=== PATIENT | female | born 1970 | race Caucasian/White ===

== ENCOUNTER 2020-02-26 11:43 | Outpatient (CLI) | payer SELFPAY | END 2020-02-26 23:59 | disposition home or self-care (01) | LOC: RAD 11:43 | PROVIDERS: ATTEND Urology | DX: Z02.9 Encounter for administrative examinations, unspecified (principal) ==

== ENCOUNTER → 2020-05-13 | Outpatient (CLI) | payer MEDICAID ==
[~2020-05-13] MED LIST: AMLO10TA8 PO; METO25TA35 PO
[2020-05-13 13:50] LABS: BASOPHILS # (AUTO) 0.03 x10^3/uL (0-0.1); BASOPHILS % (AUTO) 1 % (0-1); EOSINOPHILS # (AUTO) 0.08 x10^3/uL (0-0.4); EOSINOPHILS % (AUTO) 1 % (1-7); LYMPHOCYTES # (AUTO) 1.15 x10^3/uL (1-3.4); LYMPHOCYTES % (AUTO) 16 % (22-44); MD NO; MEAN CORPUSCULAR HEMOGLOBIN 27.3 pg (27.0-34.8); MEAN CORPUSCULAR HGB CONC 32.3 g/dL (32.4-35.8); MEAN CORPUSCULAR VOLUME 84.7 fL (80-100); MEAN PLATELET VOLUME 7.3 fL (7.4-10.4); MONOCYTES # (AUTO) 0.34 x10^3/uL (0.2-0.8); MONOCYTES % (AUTO) 5 % (2-9); NEUTROPHILS # (AUTO) 5.45 x10^3/uL (1.8-6.8); NEUTROPHILS % (AUTO) 77 % (42-75); PLATELET COUNT 253 x10^3/uL (130-400); RED BLOOD COUNT 5.73 x10^6/uL (3.82-5.3); RED CELL DISTRIBUTION WIDTH 15.5 % (9.6-15.2)
[2020-05-13 13:56] LABS: ALANINE AMINOTRANSFERASE 64 U/L (12-78); ALBUMIN 3.4 g/dL (3.4-5.0); ANION GAP 9 mmol/L (5-15); CALCIUM 8.8 mg/dL (8.5-10.1); CHLORIDE 103 mmol/L (98-107); CREATININE 0.84 mg/dL (0.55-1.02)
[2020-05-13 13:58] LABS: ALKALINE PHOSPHATASE 152 U/L (45-117); BILIRUBIN,TOTAL 0.6 mg/dL (0.2-1.0); TOTAL PROTEIN 8.5 g/dL (6.4-8.2)
[2020-05-13 14:17] LABS: MICROSCOPIC INDICATED
[2020-05-13 14:25] LABS: INTERNATIONAL NORMALIZED RATIO 0.93 (0.93-1.1); PROTHROMBIN TIME 9.9 Seconds (9.6-11.5)
== END | disposition home or self-care (01) ==
LOC: STAR 12:34
PROVIDERS: ATTEND Urology
DX: R94.31 Abnormal electrocardiogram [ECG] [EKG] (principal); N28.89 Other specified disorders of kidney and ureter
CPT/HCPCS: 36415; 80053; 81001; 85025; 85610; 85730; 87086; 93005

== ENCOUNTER 2020-05-23 05:41 | Day surgery (SDC) | payer MEDICAID ==
[~2020-05-23] VITALS: Ht 170.2 cm; Wt 99.0 kg
[2020-05-23] MEDS ORDERED: LACTATED RINGERS 1,000 ML IV SCH (06:11)
[2020-05-23 06:23] VITALS: BP 133/97
[2020-05-23] MEDS ORDERED: CHLORHEXIDINE 15 ML UDC MM ONE (06:30)
[2020-05-23] MEDS ORDERED: LIDOCAINE-MPF 1%, 2ML INFIL ONE (06:30)
[2020-05-23] MEDS ORDERED: BUPIVACAINE/PF-EPI 0.25% 1:200K ONE (06:31)
[2020-05-23] MEDS ORDERED: MANNITOL PMX 20% 0 ML ONE (06:31)
[2020-05-23] MEDS ORDERED: INDIGO CARMINE 0.8%, 5ML ONE (06:31)
[2020-05-23] MEDS ORDERED: FUROSEMIDE 20 MG/2 ML ONE (06:31)
[2020-05-23 06:34] LABS: HCG UR SG 1.018 (1.003-1.030)
[2020-05-23] MEDS ORDERED: LIDOCAINE 1%, 20ML ONE (07:07)
[2020-05-23] MEDS ORDERED: DEXAMETHASONE 4 MG/ML, 1ML ONE (07:10)
[2020-05-23] MEDS ORDERED: MIDAZOLAM 1 MG/ML, 5ML ONE (07:10)
[2020-05-23] MEDS ORDERED: GLYCOPYRROLATE 0.2MG/1ML, 5ML ONE (07:10)
[2020-05-23] MEDS ORDERED: ROCURONIUM 10MG/ML,5ML ONE (07:10)
[2020-05-23] MEDS ORDERED: FENTANYL PF 250 MCG/5ML ONE (07:10)
[2020-05-23] MEDS ORDERED: PROPOFOL 10 MG/ML, 20ML ONE (07:10)
[2020-05-23] MEDS ORDERED: ONDANSETRON 2MG/ML, 2ML ONE (07:14)
[2020-05-23] MEDS ORDERED: SCOPOLAMINE 1MG PATCH TD ONE (07:16)
[2020-05-23] MEDS ORDERED: SCOPOLAMINE 1MG PATCH TD SCH (07:30)
[2020-05-23] MEDS ORDERED: LABETALOL 5MG/ML, 20ML ONE (07:33)
[2020-05-23] MEDS ORDERED: DIAZEPAM 5 MG/ML, 2ML IVPush PRN (08:30)
[2020-05-23] MEDS ORDERED: METOCLOPRAMIDE 5 MG/ML, 2ML IVPush PRN (08:30)
[2020-05-23] MEDS ORDERED: MEPERIDINE/PF 25MG/0.5ML IVPush PRN (08:30)
[2020-05-23] MEDS ORDERED: HALOPERIDOL 5 MG/ML IV PRN (08:30)
[2020-05-23] MEDS ORDERED: HYDROmorphone 1 MG/ML, 1ML INJ IVPush PRN (08:30)
[2020-05-23] MEDS ORDERED: DIPHENHYDRAMINE 50 MG/ML, 1ML IVPush PRN (08:30)
[2020-05-23] MEDS ORDERED: HYDROcodone/APAP 7.5-325MG/15ML UDC PO PRN (08:30)
[2020-05-23] MEDS ORDERED: MIDAZOLAM 1 MG/ML, 2ML IV PRN (08:30)
[2020-05-23] MEDS ORDERED: ACETAMINOPHEN 325 MG TABLET PO PRN (08:30)
[2020-05-23] MEDS ORDERED: EPHEDRINE 50 MG/ML, 1ML IVPush PRN (08:30)
[2020-05-23] MEDS ORDERED: OXYcodone 5 MG/5 ML ORAL.SOL UDC PO PRN (08:30)
[2020-05-23] MEDS ORDERED: hydrALAzine 20 MG/ML, 1ML IV PRN (08:30)
[2020-05-23] MEDS ORDERED: ALBUTEROL/IPRATROPIUM 2.5MG/0.5MG, 3 ML NPPB PRN (08:30)
[2020-05-23] MEDS ORDERED: LORazepam 2 MG/ML, 1ML IVPush PRN (08:30)
[2020-05-23] MEDS ORDERED: ONDANSETRON 2MG/ML, 2ML IVPush PRN (08:30)
[2020-05-23] MEDS ORDERED: KETOROLAC 30 MG/1 ML IVPush PRN (08:30)
[2020-05-23] MEDS ORDERED: METHOCARBAMOL 1,000 MG in DEXTROSE 5% 100 ML IV PRN (08:30)
[2020-05-23] MEDS ORDERED: LABETALOL 5MG/ML, 20ML IV PRN (08:30)
[2020-05-23] MEDS ORDERED: EPHEDRINE 50 MG/ML, 1ML IM PRN (08:30)
[2020-05-23] MEDS ORDERED: FENTANYL PF 100 MCG/2ML ONE (10:19)
[2020-05-23] MEDS ORDERED: ACETAMINOPHEN 650 MG/20.3 ML UDC ONE (10:19)
[2020-05-23] MEDS ORDERED: MEPERIDINE/PF 25MG/ML,1ML ONE (10:19)
[2020-05-23] MEDS ORDERED: OXYcodone 5 MG/5 ML ORAL.SOL UDC ONE (10:19)
[2020-05-23] MEDS: FENTANYL PF 100 MCG/2ML IV PRN ×2 (10:37→10:57)
[2020-05-23 12:00] VITALS: BP 101/70
[2020-05-23 15:00] VITALS: BP 103/67
[2020-05-23] MEDS ORDERED: morphine SULFATE 10 MG/ML, 1ML IV PRN (15:00)
[2020-05-23] MEDS ORDERED: TEMAZEPAM 15 MG CAPSULE PO PRN (15:00)
[2020-05-23] MEDS ORDERED: HYDROcodone/APAP 5/325 TABLET PO PRN (15:00)
[2020-05-23] MEDS ORDERED: ONDANSETRON 2MG/ML, 2ML IV PRN (15:00)
[2020-05-23] MEDS ORDERED: SODIUM CHLORIDE 0.9%, 500ML IVBOLUS ONE (17:00)
[2020-05-23] MEDS: CEFAZOLIN PMX 1GM/50ML 50 ML IVPB SCH (17:59)
[2020-05-23] MEDS: SODIUM CHLORIDE 0.9% 1,000 ML IV SCH (18:05)
[2020-05-23 19:45] VITALS: BP 113/76
[2020-05-23] MEDS: AMLODIPINE 5 MG TABLET PO SCH (22:22)
[2020-05-24 00:26] VITALS: BP 123/79
[2020-05-24] MEDS: CEFAZOLIN PMX 1GM/50ML 50 ML IVPB SCH (01:56)
[2020-05-24 04:15] VITALS: BP 109/68
[2020-05-24 06:03] LABS: ANION GAP 6 mmol/L (5-15); CALCIUM 8.2 mg/dL (8.5-10.1); CHLORIDE 109 mmol/L (98-107); CREATININE 0.78 mg/dL (0.55-1.02)
[2020-05-24] MEDS ORDERED: ENOXAPARIN 40 MG/0.4 ML SQ SCH (08:00)
[2020-05-24] MEDS ORDERED: AMLODIPINE 10 MG TAB PO SCH (09:00)
[2020-05-24] MEDS ORDERED: METOPROLOL TARTRATE 25 MG TAB PO SCH (09:00)
[2020-05-24 09:14] VITALS: BP 114/77
[2020-05-24] MEDS: AMLODIPINE 5 MG TABLET PO SCH (09:23)
[2020-05-24] MEDS: SODIUM CHLORIDE 0.9% 1,000 ML IV SCH (09:24)
[2020-05-24] MEDS ORDERED: HYDR-3240 PO (10:29)
== END 2020-05-24 10:35 | disposition home or self-care (01) ==
LOC: OUT 05:41 → 4NE 11:53 → ORIP 11:58 → UNDOADMIN 11:58 → OUT 12:29 → 4NE 13:13 → ORIP 13:13 → DCLOUNGE 05-24 10:32 → 4NE 05-24 10:32 → OUT 05-24 10:35 → UNDODISIN 05-24 10:35
PROVIDERS: ATTEND Urology
DX: N28.89 Other specified disorders of kidney and ureter (principal); Z20.828 Contact with and (suspected) exposure to other viral communicable diseases; D17.71 Benign lipomatous neoplasm of kidney; N39.0 Urinary tract infection, site not specified; I10 Essential (primary) hypertension; I25.2 Old myocardial infarction; Z79.899 Other long term (current) drug therapy; Z87.442 Personal history of urinary calculi; Z80.3 Family history of malignant neoplasm of breast; Z80.0 Family history of malignant neoplasm of digestive organs
CPT/HCPCS: 36415; 50543; 80048; 81025; 85014; 85018; 86850; 86900; 87635; 88307; 88342; C1729; C1760; J0690; J1100; J1650; J1940; J2175; J2250; J2405; J2704; J2800; J3010; J7030; J7120; S2900; G0378; J7040

== ENCOUNTER → 2021-03-17 | Outpatient (CLI) | payer MEDICAID ==
[~2021-03-17] MED LIST changes: +AMLO-211 PO; -AMLO10TA8 PO; +HYDR-2214 PO
== END | disposition home or self-care (01) ==
LOC: CFH 10:56
PROVIDERS: ATTEND Physician Assistant
DX: R10.9 Unspecified abdominal pain (principal); D17.9 Benign lipomatous neoplasm, unspecified; G47.00 Insomnia, unspecified; D17.71 Benign lipomatous neoplasm of kidney; Z80.41 Family history of malignant neoplasm of ovary; Z80.3 Family history of malignant neoplasm of breast; Z80.0 Family history of malignant neoplasm of digestive organs
CPT/HCPCS: 76770